=== PATIENT | female | born 1990 | race Caucasian/White ===

== ENCOUNTER 2022-07-02 09:56 | Outpatient (CLI) | payer BC, SELFPAY ==
[2022-07-02 17:20] LABS: Chloride* 106 mmol/L (96-114); Potassium* 4.9 mmol/L (3.6-5.1); Sodium* 138 mmol/L (135-149)
[2022-07-02 17:23] LABS: Blood Urea Nitrogen* 13 mg/dL (5-24); Carbon Dioxide* 25 mmol/L (20-32); Creatinine* 0.7 mg/dL (0.5-1.5); Estimated Glomerular Filt Rate 119 ml/min; Glucose* 89 mg/dL (60-115)
[2022-07-02 17:24] LABS: Calcium* 9.7 mg/dL (8.4-10.6)
== END 2022-07-02 09:57 | disposition home or self-care (01) ==
LOC: LONREF 09:58
PROVIDERS: PCP Family Medicine; Visit Provider Family Medicine
DX: Z01.419 Encounter for gynecological examination (general) (routine) without abnormal findings (principal); I10 Essential (primary) hypertension; Z13.0 Encounter for screening for diseases of the blood and blood-forming organs and certain disorders involving the immune mechanism
CPT/HCPCS: 80048

== ENCOUNTER 2023-07-25 08:00 | Outpatient (CLI) | payer OTHER, SELFPAY ==
--- NOTE | 2023-07-25 08:15 | US_ITS ---
Final Report Patient: STEPH CAVANAUGH Facility:?[facility] Patient ID:?[id number] Site Patient ID:?[id number]. Site :?1990 Study:?US OB Pelvis TV dating/viability-07/25/2023 9:20:41 AM Ordering Physician:RONALD Final Report: INDICATION: First trimester scan, establish dates. COMPARISON: None. TECHNIQUE: Real-time haro-scale imaging of the pelvis was performed. FINDINGS: Sonographic imaging demonstrates a single living intrauterine gestation. The embryo demonstrates a regular cardiac rate measuring 176 beats per minute. The embryo`s crown-rump length measurement of 4.2 cm corresponds to a gestational age of 11 weeks 0 days with a sonographic due date of 02/13/2024. There is a normal-appearing yolk sac. There are no gross abnormalities noted within the embryo at this early state of development. The gestational sac has a normal appearance. There is no evidence of a perigestational hemorrhage. The amount of fluid within the sac appears appropriate for gestational age. The cervix is closed. The myometrium appears normal. The ovaries are of normal size. Corpus luteal cyst right ovary. There are no suspicious fluid collections noted in the cul-de-sac. IMPRESSION: Normal first trimester OB ultrasound exam. Gestational age calculated at 11 weeks 0 days with a sonographic due date of 02/13/2024. Dictated by Orlando Lucio MD @ 07/25/2023 10:01:48 AM (Electronic Signature)
== END 2023-07-25 08:01 | disposition home or self-care (01) ==
PROVIDERS: PCP Family Medicine; Visit Provider Advanced Practice Midwife
DX: Z34.91 Encounter for supervision of normal pregnancy, unspecified, first trimester (principal); Z3A.11 11 weeks gestation of pregnancy
CPT/HCPCS: 76817; 82565; 82570; 84156; 84450; 84460; 84520; 86703; 86706; 86803; 86850; 86900; 86901; 87086; 87340

== ENCOUNTER 2023-07-25 09:33 | Outpatient (CLI) | payer OTHER, SELFPAY | END 2023-07-25 09:34 | disposition home or self-care (01) | PROVIDERS: PCP Family Medicine; Visit Provider Advanced Practice Midwife | DX: Z34.91 Encounter for supervision of normal pregnancy, unspecified, first trimester (principal) | CPT/HCPCS: 82565; 82570; 84156; 84450; 84460; 84520; 86592; 86703; 86704; 86706; 86762; 86787; 86803; 86850; 86900; 86901; 87086; 87340 ==

== ENCOUNTER 2023-08-22 08:15 | Outpatient (CLI) | payer OTHER, SELFPAY | END 2023-08-22 08:16 | disposition home or self-care (01) | LOC: NFLDREF 08:36 | PROVIDERS: PCP Family Medicine; Visit Provider Obstetrics & Gynecology | DX: Z34.92 Encounter for supervision of normal pregnancy, unspecified, second trimester (principal) | CPT/HCPCS: 87491; 87591 ==

== ENCOUNTER 2025-05-08 08:15 | Outpatient (CLI) | payer OTHER, SELFPAY ==
[2025-05-08 15:06] LABS: Chlamydia DNA Amplified* NOT DETECTED (No Detected); GC DNA Amplified* NOT DETECTED (No Detected)
[2025-05-10 07:38] LABS: HPV Source Cervix
[2025-05-14 09:32] LABS: Pap Test Digital Imaging Done
== END 2025-05-08 08:16 | disposition home or self-care (01) ==
PROVIDERS: PCP Family Medicine; Visit Provider Physician Assistant Medical
DX: Z00.00 Encounter for general adult medical examination without abnormal findings (principal); I10 Essential (primary) hypertension
CPT/HCPCS: 80048; 80061; 82784; 84443; 86231; 86258; 86364; 87491; 87591; 87624; 87625; 88141; 88142; 88175